=== PATIENT | female | born 1970 | race Caucasian/White ===

== ENCOUNTER → 2024-02-06 09:52 | Outpatient (REF) | payer OTHER, SELFPAY ==
[2024-02-06 11:58] LABS: Rubella Positive
[2024-02-06 12:37] LABS: Hepatitis B Surface Antibody Negative
[2024-02-08 17:13] LABS: Quantiferon Mitogen minus NIL >10.00 IU/mL; Quantiferon NIL 0.02 IU/mL; Quantiferon TB Gold Plus Negative (Negative)
== END ==
LOC: OHS 09:52
PROVIDERS: ATTENDING PHYSICIAN Nurse Practitioner Family
DX: Z23 Encounter for immunization (principal)
CPT/HCPCS: 36415; 86480; 86706; 86735; 86762; 86765; 86787

== ENCOUNTER → 2024-07-18 17:25 | Outpatient (REF) | payer OTHER, SELFPAY | LOC: WDC 17:25 | PROVIDERS: ATTENDING PHYSICIAN Midwife; FAMILY PHYSICIAN Family Medicine | DX: Z12.31 Encounter for screening mammogram for malignant neoplasm of breast (principal) | CPT/HCPCS: 77063; 77067 ==